=== PATIENT | male | born 1965 | race Caucasian/White ===

== ENCOUNTER 2016-06-16 17:20 | Emergency (ER) | payer OTHER ==
--- NOTE | 2016-06-16 18:01 | ERNOTE ---
Medical Problem HPI - Narrative Date of Service: 06/16/16 - General Chief Complaint: Laceration Time Seen by Provider: 06/16/16 17:26 Source: patient, family, RN notes reviewed Exam Limitations: no limitations - Immun/Allergies/Home Medications Immunizations: IMMUNIZATION HX Immunizations Up to Date Yes History of Influenza Vaccine No Hx Pneumococcal Vaccination No Allergies/Adverse Reactions: Allergies No Known Allergies Allergy (Unverified 06/16/16 17:25) Home Medications: HOME MEDICATIONS NK [No Home Medication] 06/16/16 [Last Taken Unknown] - History of Present History Narrative: 50 y/o male brought to ED by his for a laceration to his left thumb. He cut himself with a utility knife while cutting vinyl funmilayo. He reports that the knife was new. Review of Systems - Review of Systems Constitutional: Present: no symptoms reported EYE: Present: no symptoms reported ENT: Present: no symptoms reported Respiratory: Present: no symptoms reported Cardiology: Present: no symptoms reported Gastrointestinal/Abdominal: Present: no symptoms reported Genitourinary: Present: no symptoms reported Musculoskeletal: Absent: joint pain, joint swelling Skin: Absent: lesions, lumps, change in color Neurological: Present: dizziness/light-headedness. Absent: weakness, numbness, tingling Endocrine: Present: no symptoms reported Hematologic/Lymphatic: Present: no symptoms reported Psych: Present: anxiety - Patient's Past Medical History Patient History - Medical: No pertinent hx Patient History - Cardiac/Respiratory: No pertinent hx Patient History - Cancer: No Hx of Cancer Patient History - Surgical Procedures: No surgical history - Social History Living Situations: spouse Smoking Status: Never smoker Have you smoked in the past 12 months: No Do you dip or chew tobacco: No Alcohol Use: occasionally Drug Use: none - Immunizations Immunizations Up to Date: Yes - reports tetanus vaccine within 10 yrs Physical Exam - Physical Exam General Appearance: Present: wd/wn, alert, mild distress, anxious Respiratory: Present: no respiratory distress, no accessory muscle use Cardiovascular/Chest: Present: normal peripheral pulses Peripheral Pulses: N=norm/S=strong/W=weak/B=bound/A=absent: Radial (R): Strong, Radial (L): Strong - Extremity Exam: Present: no edema, normal range of motion, other - laceration to dorsal left thumb near MCP joint Neurological Exam: Present: alert, oriented, normal mood/affect, no motor/ sensory deficits Skin Exam: Present: normal color, warm/dry ED Progress - Vital Signs Patient's Vital Signs:: I have reviewed the patient's vital signs. Vital Signs: Vital Signs 06/16/16 17:22 Temperature 36 C L Pulse Rate 63 Respiratory 14 Rate Blood Pressure 113/68 O2 Sat by Pulse 99 Oximetry - Progress/Reassessment Chief Complaint: Laceration Progress:: Improved Procedures Left Dorsal Hand 5th Digit Anesthesia: 1% Lidocaine I & D Prep: betadine prep, sterile drapes applied Wound's Depth/Shape: into subcutaneous, linear Wound Explored: clean, to base, in bloodless field, no foreign body Wound Intervention: irrigated w/saline Distal NVT: neuro/vasc intact, no tendon injury Wound Repaired With: sutures Suture Size/Type: 4-0, nylon Number of Sutures: 5 Layer Closure: Simple Wound Dressing: sterile dressing applied, splint applied Complications: other - Patient became diaphoretic, pale and lightheaded during procedure, resolved with rest Departure - Departure Clinical Impression: Laceration of thumb, left Qualifiers: Encounter type: initial encounter Qualified Code(s): S61.012A - Laceration without foreign body of left thumb without damage to nail, initial encounter Disposition: Home Follow Up Needed Condition: Good Instructions: Sutured Wound Care, [id number] Additional Instructions: Keep dressing in place and dry for 48 hours Can then wash wound gently with soap and water, apply antibiotic ointment twice a day, cover with bandage as needed Wear splint to limit tension on wound Have sutures removed in 7 days Referrals: Fredy Sexton MD [Primary Care Provider] -
[2016-06-16 18:21] VITALS: BP 106/62
== END 2016-06-16 18:19 | disposition home or self-care (01) ==
LOC: ER 17:20
PROC: 0JQK0ZZ Repair Left Hand Subcutaneous Tissue and Fascia, Open Approach (ICD-10-PCS; principal; 2016-06-16)
DX: S61.012A Laceration without foreign body of left thumb without damage to nail, initial encounter (principal); W26.0XXA Contact with knife, initial encounter